=== PATIENT | female | born 1990 | race Hispanic/Latino ===

== ENCOUNTER 2018-08-27 07:13 | Outpatient (CLI) | payer OTHER ==
--- NOTE | 2018-08-27 08:57 | ULT ---
SONOGRAM RIGHT UPPER QUADRANT: Date: 08/27/18 HISTORY: Right upper quadrant pain. FINDINGS: Shadowing stone is present within the gallbladder neck. No gallbladder wall thickening or pericholecy stic fluid. Patient was reportedly not tender over the gallbladder fossa at the time of the exam. Com mon duct is 0.3 cm. Liver unremarkable without focal mass or intrahepatic biliary dilatation. IMPRESSION: Cholelithiasis. No evidence of acute biliary obstruction. POS: DANIEH
== END 2018-08-27 07:14 | disposition home or self-care (01) ==
LOC: SCSULT 07:13
PROVIDERS: ATTEND Surgery
DX: R10.11 Right upper quadrant pain (principal); K80.20 Calculus of gallbladder without cholecystitis without obstruction
CPT/HCPCS: 76705

== ENCOUNTER 2018-09-03 06:38 | Outpatient (CLI) | payer OTHER ==
[2018-09-03 15:56] LABS: #Basophils 0.1 thou/uL (0.0-0.2); #Eosinphils 0.2 thou/uL (0.0-0.7); #Lymphocytes 2.7 thou/uL (1.20-3.40); #Monocytes 0.4 thou/uL (0.11-0.59); %Basophils 0.9 % (0.0-1.0); %Eosinophils 2.9 % (0.0-10.0); %Lymphocytes 32.3 % (21.0-51.0); %Neutrophils 58.9 % (42.0-75.0); Hemoglobin 14.2 g/dL (12.0-16.0); Mean Corpuscular HGB CONC 32.5 g/dL (32.0-36.0); Mean Corpuscular Hemoglobin 30.2 pg (27.0-31.0); Mean Corpuscular Volume 93.1 fL (78.0-98.0); Mean Platelet Volume 10.1 fL (7.4-10.4); Platelet Count 223 thou/uL (130-400); RBC Distribution Width 11.4 % (11.5-14.5); White Blood Cell (WBC) Count 8.5 thou/uL (4.8-10.8)
[2018-09-03 16:03] LABS: BHCG - Serum Negative (NEGATIVE); Pregs Control Background? CLEAR/WHITE (CLR/WHITE); Pregs Control Bar Appear? YES (CONTROL BAR)
[2018-09-03 16:15] LABS: ALT (SGPT) 20 U/L (8-55); AST (SGOT) 12 U/L (5-34); Albumin 4.2 g/dL (3.5-5.0); Alkaline Phosphatase 92 U/L (40-150); Anion Gap 11 mmol/L (10-20); BUN (Urea Nitrogen) 11 mg/dL (7.0-18.7); Bilirubin, Direct 0.2 mg/dL (0.1-0.3); Bilirubin, Total 0.4 mg/dL (0.2-1.2); Calc. Creatinine Clearance 0 mL/min (70-130); Calcium 9.5 mg/dL (7.8-10.44); Carbon Dioxide 23 mmol/L (22-29); Chloride 106 mmol/L (98-107); Estimated GFR-MDRD 87; Globulin 2.8 g/dL (2.4-3.5); Glucose 172 mg/dL (70-105); Potassium 3.3 mmol/L (3.5-5.1); Sodium 137 mmol/L (136-145)
== END 2018-09-03 06:39 | disposition home or self-care (01) ==
LOC: LABBT 06:38
PROVIDERS: ATTEND Surgery
DX: Z01.812 Encounter for preprocedural laboratory examination (principal); K80.20 Calculus of gallbladder without cholecystitis without obstruction
CPT/HCPCS: 80053; 80076; 84703; 85025

== ENCOUNTER 2018-09-05 07:33 | Day surgery (SDC) | payer OTHER ==
[2018-09-03 15:11] VITALS: BMI 28.0
[2018-09-05] MEDS ORDERED: cefOXitin Sodium/Dextrose,Iso 2 GM in Premix Bag 1 BAG IVPB SCH (08:00)
[2018-09-05] MEDS ORDERED: Bupivacaine HCl 0.5%/Epinephrine 1:200,000/PF 30 ml Vial ONE (08:39)
[2018-09-05] MEDS ORDERED: Fentanyl 100 MCG/2 ML VIAL ONE ×2 (08:40→10:44)
[2018-09-05] MEDS ORDERED: Lidocaine 2% Jelly 5 ML TUBE ONE (08:40)
[2018-09-05] MEDS ORDERED: Midazolam HCl 2 mg/2 ml Vial ONE ×2 (08:40→08:45)
--- NOTE | 2018-09-05 10:26 | OP ---
DATE OF PROCEDURE: 09/05/2018 PREOPERATIVE DIAGNOSIS: Symptomatic cholelithiasis. PROCEDURE PERFORMED: Laparoscopic cholecystectomy. INDICATIONS: This is a 28-year-old female, who has been having episodic right upper quadrant pain radiating to back, associated with nausea. Ultrasound showed cholelithiasis. FINDINGS: Small caliber cystic duct. DESCRIPTION OF PROCEDURE: After informed consent was obtained, the patient was taken to the operating room, given general endotracheal anesthesia, placed in supine position. Abdomen was prepped and draped in usual fashion. Local anesthesia was infiltrated subcutaneously and deep. A subumbilical incision was performed. Subcu divided sharply. Fascia was grasped with two stay sutures placed in each side of midline. Midline was incised. Digital palpation revealed no local adhesions. A blunt 10/12 trocar inserted. Pneumoperitoneum was created to a pressure of 15 mmHg. A 0-degree laparoscope was inserted and under direct vision, three 5 mm ports were placed subcostally. Gallbladder was advanced superiorly. The peritoneum was dissected to expose the cystic duct, cystic artery, and critical view. The artery and duct were triply ligated with hemoclips and divided. The gallbladder removed from its fossa utilizing electrocautery and removed from the abdomen through the umbilical port. Hemostasis assured. Trocars and retractors removed. The fascia was closed with interrupted 0 Vicryl sutures. Skin closed with interrupted 4-0 Rapide. Dermabond applied. The patient tolerated the procedure well, transferred to Recovery in good condition. Sponge and needle count verified correct x2. Job ID: [id number]
[2018-09-05] MEDS ORDERED: HYDROcodone/Acetaminophen 5/325 mg Tablet ONE (12:55)
== END 2018-09-05 13:15 | disposition home or self-care (01) ==
LOC: SDC 07:33
PROVIDERS: ATTEND Surgery
PROC: 0FT44ZZ Resection of Gallbladder, Percutaneous Endoscopic Approach (ICD-10-PCS; principal; 2018-09-05)
DX: K80.10 Calculus of gallbladder with chronic cholecystitis without obstruction (principal); E03.9 Hypothyroidism, unspecified; Z79.899 Other long term (current) drug therapy
CPT/HCPCS: 88304; J0670; J2250; J3010